=== PATIENT | male | born 1945 | race Caucasian/White ===

== ENCOUNTER 2021-08-19 17:09 | Inpatient (IN) | payer MEDICARE, BC, SELFPAY ==
[2021-08-19] VITALS (8 sets, daily range): BP systolic 118–143; BP diastolic 53–62; PULSE 57–77; RESP 16–18; TEMP 36.7–37.1; O2SAT 96–100; BMI 23.7
--- NOTE | ~2021-08-19 | XR_ITS ---
EXAMINATION: XR CHEST CLINICAL INFORMATION: Near syncope COMPARISON: Chest x-ray on 11/21/2009 TECHNIQUE: Frontal view of the chest was obtained. FINDINGS: No significant abnormality is noted involving the heart, lungs, mediastinum, bony thorax or soft tissues. XR/XR chest 1V IMPRESSION: Unremarkable examination.
--- NOTE | ~2021-08-19 | XR_ITS ---
EXAMINATION: XR HAND, RIGHT CLINICAL INFORMATION: Fall, right hand injury COMPARISON: None TECHNIQUE: PA, lateral, and oblique views of the right hand. FINDINGS: The bones and soft tissues are normal. No fracture. Alignment is anatomic. Loss of joint space with subchondral sclerosis and subluxation at the fifth DIP joint. No erosions or soft tissue calcifications. XR/XR hand RT 2V IMPRESSION: Fifth DIP joint osteoarthritis.
--- NOTE | ~2021-08-19 | MR_ITS ---
EXAMINATION: MRI BRAIN WITHOUT CONTRAST CLINICAL INFORMATION: Question lacunar infarct seen on CT. Patient with fall. COMPARISON: CT scan of the head 08/19/2021. TECHNIQUE: Multiplanar MR imaging of the brain was performed without contrast. FINDINGS: There are scattered nonspecific foci of T2 FLAIR signal hyperintensity within the periventricular white matter. There is a well marginated perivascular space at the inferior margin of the left putamen that coincides with the findings demonstrated on recent CT imaging. No evidence of acute territorial infarct. No pathological magnetic susceptibility artifact. Intracranial vascular flow voids are maintained. There is no mastoid or middle ear effusion. No active paranasal sinus disease. MR/MR head/brain wo con IMPRESSION: There are scattered chronic small vessel ischemic changes within the periventricular white matter. No evidence of acute territorial infarct or hemorrhage. There is a benign perivascular space along the inferior aspect the left putamen that coincides with the findings demonstrated on recent CT imaging.
--- NOTE | ~2021-08-19 | CT_ITS ---
EXAMINATION: CT HEAD WITHOUT CONTRAST CT CERVICAL SPINE WITHOUT CONTRAST CLINICAL INFORMATION: Near syncope. Fall. Neck pain. COMPARISON: None. TECHNIQUE: Imaging was performed from the skull base to vertex without intravenous administration of contrast. In addition, helical noncontrast CT imaging was acquired through the cervical spine and source images were reviewed along with axial reconstructions and sagittal and coronal MPRs. [This CT examination was performed using dose optimization techniques as appropriate, variously including the following: *Automated exposure control *Adjustment of mA and/or kV according to patient size (this includes techniques or standardized protocols for targeted exams where dose is matched to indication/reason for exam; i.e. extremities or head) *Use of iterative reconstruction technique] DLP: 1173 mGy-cm FINDINGS: HEAD: No intracranial mass, hemorrhage, or midline shift is visualized. There is generalized global volume loss. There is moderate prominence of the ventricles and the sulci . There is mild hypodensity of the periventricular white matter due to chronic small vessel ischemic disease. There are vascular calcifications of the internal carotid arteries bilaterally. Lacunar infarct versus prominent perivascular space in the left basal ganglia.. No extra-axial collections are identified. The paranasal sinuses and mastoid air cells are well aerated. CERVICAL SPINE: There is no evidence of acute cervical spine fracture. Vertebral bodies remain normal in height. Cervical vertebrae have normal alignment. There is multilevel degenerative spondylosis of the cervical spine with disc height narrowing and endplate spurs and facet joint arthrosis No pre- or paravertebral soft tissue abnormality is identified. Limited assessment of the lung apices is unremarkable. CT/CT cervical spine wo con IMPRESSION: 1. No acute intracranial pathology. 2. No CT evidence of acute cervical spine fracture or traumatic subluxation
--- NOTE | 2021-08-19 17:56 | ECG_ITS ---
Test Reason : FALL Blood Pressure : / mmHG Vent. Rate : 059 BPM Atrial Rate : 059 BPM P-R Int : 184 ms QRS Dur : 084 ms QT Int : 448 ms P-R-T Axes : 000 174 151 degrees QTc Int : 443 ms Suspect limb lead reversal, interpretation assumes no reversal Sinus bradycardia Inferior infarct (cited on or before 09-NOV-2007) cannot exclude anterior infarct Abnormal ECG When compared with ECG of 09-NOV-2007 15:22, QRS axis Shifted right Referred By: Bayron Rosales Electronically Signed By:RADHA SAM
--- NOTE | 2021-08-19 17:59 | ED_ITS ---
HPI - Fall General Chief Complaint: Fall Stated Complaint: dizzy/fall Time Seen by Provider: 08/19/21 17:55 Source: patient and EMS Mode of arrival: EMS Limitations: no limitations History of Present Illness HPI Narrative: 76-year-old male came in for evaluation after fall. Patient was going upstairs when he felt dizzy and lightheadedness, as a result patient fell backward about 14 steps of stairs hitting his head and neck and right hand, patient declined Loc before or after the fall, no chest pain, difficulty breathing, no reported weakness or numbness. Patient complains of occipital pain and neck pain, Also right little finger small laceration and bleeding from it. Patient is not on blood thinner. Related Data Home Medications Medication Instructions Recorded Confirmed amlodipine 10 mg tablet 1 tab PO DAILY 08/19/21 08/19/21 bupropion HCl 150 mg 24 hr tablet, 1 tab PO BEDTIME 08/19/21 08/19/21 extended release carvedilol 3.125 mg tablet 1 tab PO BID 08/19/21 08/19/21 fluoxetine 40 mg capsule 1 cap PO BEDTIME 08/19/21 08/19/21 hydrochlorothiazide 25 mg tablet 1 tab PO DAILY 08/19/21 08/19/21 Allergies Allergy/AdvReac Type Severity Reaction Status Date / Time No Known Allergies Allergy Verified 08/19/21 17:55 Review of Systems Review of Systems: All other systems are reviewed and are negative Constitutional: Reports as per HPI and Reports no additional constitutional complaints Eyes: Reports as per HPI and Reports no additional eye complaints Reports system reviewed and no additional complaints, except as documented Cardiovascular: Reports as per HPI and Reports no additional cardiovascular complaints Respiratory: Reports as per HPI and Reports no additional respiratory complaints Gastrointestinal: Reports as per HPI and Reports no additional gastrointestinal complaints Genitourinary: Reports no additional female genitourinary complaints Musculoskeletal: Reports no additional musculoskeletal complaints Skin/Breast: Reports system reviewed and no additional complaints, except as docu Psychiatric: Reports no additional psychiatric complaints Endocrine: Reports no additional endocrine complaints Hematologic/Lymphatic: Reports no additional hematologic/lymphatic complaints Allergic/Immunologic: Reports no additional allergic/immunologic complaints Reports system reviewed and no additional complaints, except as documented and Reports Abnormal speech present [facility] Social History Social History Patient Tobacco Use Status: Never used Tobacco Use of substances other than those prescribed or required for medical reasons: No Advance Directives: No Advance Directives Information Provided: Yes Physical Exam Vital Signs: Vital Signs: Last Vital Signs Temp 98.1 F 08/19/21 18:50 Pulse 59 08/19/21 18:50 Resp 16 08/19/21 18:50 BP 134/58 L 08/19/21 18:50 Pulse Ox 100 08/19/21 18:50 BMI result Body Mass Index 23.7 vital signs have been reviewed as appeared to be correct. Blood pressure normal. Heart rate normal. Respiration rate normal. Temperature normal. Oxygen saturation normal. Appearance: Alert. Oriented X3. No acute distress. GCS 15 Head: Normal external exam. Normocephalic. Atraumatic. No Pepper signs noted. No raccoon eyes noted Eyes: PERRLA. EOMI. Conjunctiva and sclera normal. Eyelids normal. ENT: TM's Normal. Pharynx normal. Uvula midline. Moist mucous membranes. No trismus noted. No drooling noted. No muffled voice noted. Neck: Normal inspection. Neck supple. FROM. No adenopathy. Thyroid Normal. No meningeal signs. No neck mass noted. CVS: Normal heart rate and rhythm. Heart sound normal. No murmurs noted. Pulses normal throughout. Respiratory: No respiratory distress. Painless inspiration. Breath sounds normal. No wheezes/rales/rhonchi noted. Chest nontender. No accessory muscle usage noted or decreased air movement noted. Abdomen: Soft and nontender. Bowel sounds normal in all 4 quadrants. No distention noted. No organomegaly noted. No visible injury noted. Back: No CVA tenderness. Full range of motion noted. Skin: Skin warm and dry. Normal skin color. Normal skin turgor. No rashes/lesions/lacerations noted. Extremities: No lower extremity edema. Extremities exhibit normal range of motion. Extremities nontender. Neuro: Oriented X 3. GCS 15 Cranial nerve exam: II-XII are grossly intact No motor deficit. No sensory deficit. Reflexes normal. Course Course Course Narrative: assessment and plan. 76-year-old fell after having lightheadedness, patient landed on the head and neck and fell about 14 steps stairs, no full LOC but near-syncope that caused the fall. Neuro exam intact/GCS is 15 / head CT is unremarkable. Given patient's age and the mechanism of fall after feeling lightheadedness cassie the patient to be admitted for further workup. MDM - Fall Medical Records Attestation: I reviewed the patient's medical records. Lab Data Attestation: I reviewed the patient's lab results. Result diagrams: 08/19/21 18:32 08/19/21 18:32 Labs: Lab Results 08/19/21 08/19/21 08/19/21 Range/Units 18:32 18:32 18:32 WBC 12.2 H (4.8-10.8) X10*3/uL RBC 3.67 L (4.60-5.80) X10*6/uL Hgb 12.1 L (14.0-18.0) g/dl Hct 35.9 L (42.0-52.0) % MCV 97.8 (80.0-98.0) fL MCH 33.0 (27.0-33.0) pg MCHC 33.7 (31.0-36.0) g/dl RDW 12.8 (11.0-16.0) % Plt Count 264 (160-400) X10*3/uL MPV 9.4 (9.4-12.4) fL Immature Gran % (Auto) 1.1 H (0.0-0.4) % Neut % (Auto) 76.1 H (45-73) % Lymph % (Auto) 10.8 L (20-40) % [place] % (Auto) 9.1 (2-11) % Eos % (Auto) 2.6 (0-4) % Baso % (Auto) 0.3 (0-2) % Lymph # (Auto) 1.3 (1.2-4.9) X10*3/uL [place] # (Auto) 1.1 (0.1-1.2) X10*3/uL Eos # (Auto) 0.3 (0.0-0.4) X10*3/uL Baso # (Auto) 0.0 (0.0-0.2) X10*3/uL Abs Immat Gran (auto) 0.13 H (0.00-0.03) X10*3/uL Absolute Neuts (auto) 9.3 H (2.0-8.3) x10*3/uL Absolute Nucleated RBC 0.000 (0.0-0.012) X10*3/uL Nucleated RBC % (auto) 0.0 (0.0-0.2) /100WBC Sodium 139 (135-145) mmol/L Potassium 4.0 (3.3-5.1) mmol/L Chloride 103 (96-108) mmol/L Carbon Dioxide 23 (22-29) mmol/L Anion Gap 17 (12-20) BUN 19 H (9-16) mg/dL Creatinine 1.16 (0.5-1.4) mg/dL Estim Creat Clear Calc 59.5 Estimated GFR > 60 Random Glucose 88 (60-115) mg/dL Calcium 9.3 (8.4-10.2) mg/dL Total Bilirubin 0.3 (0.0-1.0) mg/dL Direct Bilirubin < 0.2 (0.0-0.5) mg/dL AST 32 (5-37) U/L ALT 20 (0-40) U/L Alkaline Phosphatase 53 (39-117) U/L Troponin I High Sens < 3.5 (<3.5-35.0) ng/L B-Natriuretic Peptide (<100) pg/mL Total Protein 7.2 (6.5-8.0) g/dL Albumin 3.6 (3.5-5.0) g/dL Lipase 53 (8-78) U/L Urine Color Urine Appearance Urine pH (5.0-8.0) Ur Specific [place] (1.005-1.025) Urine Protein (NEG-TRACE) MG/DL Urine Glucose (UA) (NEG) MG/DL Urine Ketones (NEG) MG/DL Urine Blood (NEG) Urine Nitrite (NEG) Ur Leukocyte Esterase (NEG) COVID-19 (OJSETTE) (Negative) COVID-19 Clin Com 08/19/21 08/19/21 08/19/21 Range/Units 18:32 18:32 19:31 WBC (4.8-10.8) X10*3/uL RBC (4.60-5.80) X10*6/uL Hgb (14.0-18.0) g/dl Hct (42.0-52.0) % MCV (80.0-98.0) fL MCH (27.0-33.0) pg MCHC (31.0-36.0) g/dl RDW (11.0-16.0) % Plt Count (160-400) X10*3/uL MPV (9.4-12.4) fL Immature Gran % (Auto) (0.0-0.4) % Neut % (Auto) (45-73) % Lymph % (Auto) (20-40) % [place] % (Auto) (2-11) % Eos % (Auto) (0-4) % Baso % (Auto) (0-2) % Lymph # (Auto) (1.2-4.9) X10*3/uL [place] # (Auto) (0.1-1.2) X10*3/uL Eos # (Auto) (0.0-0.4) X10*3/uL Baso # (Auto) (0.0-0.2) X10*3/uL Abs Immat Gran (auto) (0.00-0.03) X10*3/uL Absolute Neuts (auto) (2.0-8.3) x10*3/uL Absolute Nucleated RBC (0.0-0.012) X10*3/uL Nucleated RBC % (auto) (0.0-0.2) /100WBC Sodium (135-145) mmol/L Potassium (3.3-5.1) mmol/L Chloride (96-108) mmol/L Carbon Dioxide (22-29) mmol/L Anion Gap (12-20) BUN (9-16) mg/dL Creatinine (0.5-1.4) mg/dL Estim Creat Clear Calc Estimated GFR Random Glucose (60-115) mg/dL Calcium (8.4-10.2) mg/dL Total Bilirubin (0.0-1.0) mg/dL Direct Bilirubin (0.0-0.5) mg/dL AST (5-37) U/L ALT (0-40) U/L Alkaline Phosphatase (39-117) U/L Troponin I High Sens (<3.5-35.0) ng/L B-Natriuretic Peptide 49 (<100) pg/mL Total Protein (6.5-8.0) g/dL Albumin (3.5-5.0) g/dL Lipase (8-78) U/L Urine Color YELLOW Urine Appearance CLEAR Urine pH 6.0 (5.0-8.0) Ur Specific [place] 1.020 (1.005-1.025) Urine Protein NEG (NEG-TRACE) MG/DL Urine Glucose (UA) NEG (NEG) MG/DL Urine Ketones NEG (NEG) MG/DL Urine Blood NEG (NEG) Urine Nitrite NEG (NEG) Ur Leukocyte Esterase NEG (NEG) COVID-19 (JOSETTE) Negative (Negative) COVID-19 Clin Com See Note Imaging Data Chest x-ray: Attestation: I personally reviewed and interpreted this imaging study as follows: Radiologist's impression: unremarkable examination right hand x-ray: Attestation: I personally reviewed and interpreted this imaging study as follows: Radiologist's impression: Fifth DIP joint osteoarthritis. cervical spine CT: Radiologist's impression: no CT evidence of acute cervical spine fracture or traumatic subluxation. CT scan - head: Radiologist's impression: No acute intracranial pathology. ECG Data Attestation: I personally reviewed and interpreted this ECG as follows: Interpretation: Sinus bradycardia at 59 beats per minutes, normal axis deviation, normal intervals, no ST-T changes. Discharge Plan Discharge Clinical Impression: Near syncope, Closed head injury Patient Disposition: Admitted As Inpatient
[2021-08-19 18:40] LABS: MANUAL DIFF FLAG NO
[2021-08-19 18:41] LABS: Basophils Percent Auto 0.3 % (0-2); Eosinophils Absolute Auto 0.3 X10*3/uL (0.0-0.4); Eosinophils Percent Auto 2.6 % (0-4); Hematocrit 35.9 % (42.0-52.0); Hemoglobin 12.1 g/dl (14.0-18.0); Imm Gran Abs Auto 0.13 X10*3/uL (0.00-0.03); Imm Gran Pct Auto 1.1 % (0.0-0.4); Lymphocytes Absolute Auto 1.3 X10*3/uL (1.2-4.9); Lymphocytes Percent Auto 10.8 % (20-40); Mean Corpuscular HGB Conc 33.7 g/dl (31.0-36.0); Mean Corpuscular Volume 97.8 fL (80.0-98.0); Mean Platelet Volume 9.4 fL (9.4-12.4); Monocytes Absolute Auto 1.1 X10*3/uL (0.1-1.2); Monocytes Percent Auto 9.1 % (2-11); Neutrophils Absolute Auto 9.3 x10*3/uL (2.0-8.3); Neutrophils Percent Auto 76.1 % (45-73); Platelet Count 264 X10*3/uL (160-400); Red Blood Count 3.67 X10*6/uL (4.60-5.80); Red Cell Distribution Width 12.8 % (11.0-16.0); White Blood Count 12.2 X10*3/uL (4.8-10.8)
[2021-08-19 18:57] LABS: COVID-19 Test Negative (Negative)
[2021-08-19 18:59] LABS: Alanine Aminotransferase 20 U/L (0-40); Albumin Level 3.6 g/dL (3.5-5.0); Alkaline Phosphatase 53 U/L (39-117); Anion Gap 17 (12-20); Aspartate Amino Transferase 32 U/L (5-37); Bilirubin Direct < 0.2 mg/dL (0.0-0.5); Bilirubin Total 0.3 mg/dL (0.0-1.0); Blood Urea Nitrogen 19 mg/dL (9-16); Calcium 9.3 mg/dL (8.4-10.2); Carbon Dioxide 23 mmol/L (22-29); Chloride 103 mmol/L (96-108); Creatinine Clr Calc Pharmacy 59.5; Estimated Glomerular Filt Rate > 60; Glucose Random 88 mg/dL (60-115); Lipase 53 U/L (8-78); Sodium 139 mmol/L (135-145); Total Protein 7.2 g/dL (6.5-8.0)
[2021-08-19 19:02] LABS: B Type Natriuretic Peptide 49 pg/mL (<100); Troponin-I High Sensitivity < 3.5 ng/L (<3.5-35.0)
[2021-08-19 19:42] LABS: Appearance Urine CLEAR; Color Urine YELLOW; Glucose Urine UA NEG (NEG); Leukocyte Esterase Urine NEG (NEG); Nitrite Urine NEG (NEG); Urine Blood NEG (NEG); Urine Ketones NEG (NEG); Urine Protein NEG (NEG-TRACE)
--- NOTE | 2021-08-19 20:55 | P.HPHOSP_ITS ---
History of Present Illness Date of Service: 08/19/21 Chief Complaint: fall this is a 76-year-old male with past medical history of Crohn's disease as well as hypertension and depression presents to the hospital with a fall. Patient reports that he was climbing the stairs missed his side rail and fell over 10 st eps down. He is currently feeling very sore but has no significant pain. Patient denies any loss of consciousness, denies feeling any prodromal symptoms including no palpitations, no chest pain, no lightheadedness, no change in vision, No shortness of breath. he reports that he just lost his balance and fell and when he fell down he did not lose any consciousness. Upon further questioning his at bedside mentions that for the past few months patient has been having lucid episodes where he suddenly becomes altered lasting about 20 minutes. He reports that he would be talking normally and then all the sudden he would start babbling making no sense trying to talk but no comprehensible word with come out. he has not seek any medical attention for this and patient himself does not remember these episodes. His reports that these have been occurring on and off for the past few months. patient denies any numbness tingling or weakness in his arms legs and no facial droop or change in speech. On arrival to the ED patient hemodynamically stable with no significant abnormal vitals labs reviewed showed WBC count of 12.2, hemoglobin of 12.1, labs otherwise unremarkable, UA negative, chest x-ray unremarkable, and x-ray negative, cervical spine CT negative, head CT showed no acute intracranial pathology but in the details it does mention lacunar infarct versus prominent perivascular space in the left basal ganglia given his mentioned symptoms, fall, as well as CT finding of possible lacunar infarct, will admit patient for observation and order MRI Review of Systems Review of Systems: Yes all other systems are reviewed and are negative [facility] Medical History (Updated 08/20/21 @ 06:40 by Yani Pretty MD) Crohn's disease Depression Hypertension Family History (Updated 08/20/21 @ 06:39 by Yani Pretty MD) Father Heart disease Surgical History (Updated 08/20/21 @ 06:39 by Yani Pretty MD) No pertinent past surgical history Social History Patient Tobacco Use Status: Never used Tobacco Use of substances other than those prescribed or required for medical reasons: No Advance Directives: No Advance Directives Information Provided: Yes Meds Allergies Allergy/AdvReac Type Severity Reaction Status Date / Time No Known Allergies Allergy Verified 08/19/21 17:55 Active Medications: Current Medications Pharmacy Consult (Consult Rx Perform Med Rec) 1 each MISCELLANE ONCE PRN PRN Reason: Consult order Home Medications Medication Instructions Recorded Confirmed Last Taken Type amlodipine 10 mg tablet 1 tab PO DAILY 08/19/21 08/19/21 Unknown History bupropion HCl 150 mg 24 hr tablet, 1 tab PO BEDTIME 08/19/21 08/19/21 Unknown History extended release carvedilol 3.125 mg tablet 1 tab PO BID 08/19/21 08/19/21 Unknown History fluoxetine 40 mg capsule 1 cap PO BEDTIME 08/19/21 08/19/21 Unknown History hydrochlorothiazide 25 mg tablet 1 tab PO DAILY 08/19/21 08/19/21 Unknown Hist ory Physical Exam Vital Signs and Narrative: Vital Signs: Last Vital Signs Temp 98.1 F 08/19/21 18:50 Pulse 59 08/19/21 18:50 Resp 16 08/19/21 18:50 BP 134/58 L 08/19/21 18:50 Pulse Ox 100 08/19/21 18:50 BMI result Body Mass Index 23.7 Const: General: cooperative and no acute distress Orientation/consciousness: patient oriented x3 Eyes: General: appearance normal, both eyes and all related structures Resp: Effort & Inspection: normal respiratory effort Auscultation: clear to auscultation bilaterally Cardio: Rate: regular rate Rhythm: regular rhythm GI: Palpation (GI): Soft to palpation Auscultation: normal bowel sounds Skin: General skin exam: no rashes or lesions noted Neuro: Other: strength is 5/5 in all extremity, no neurological deficits noted General: patient oriented x3 Cognition (Neuro): normal cognition Extrem: General: Yes normal to inspection and Yes no pedal edema Results Labs CBC and Chem 7: 08/19/21 18:32 08/19/21 18:32 Labs: Laboratory Results - last 24 hr 08/19/21 08/19/21 08/19/21 18:32 18:32 18:32 MCV 97.8 MCH 33.0 MCHC 33.7 RDW 12.8 Plt Count 264 MPV 9.4 Immature Gran % (Auto) 1.1 H Neut % (Auto) 76.1 H Lymph % (Auto) 10.8 L [place] % (Auto) 9.1 Eos % (Auto) 2.6 Baso % (Auto) 0.3 Lymph # (Auto) 1.3 [place] # (Auto) 1.1 Eos # (Auto) 0.3 Baso # (Auto) 0.0 Abs Immat Gran (auto) 0.13 H Absolute Neuts (auto) 9.3 H Absolute Nucleated RBC 0.000 Nucleated RBC % (auto) 0.0 Anion Gap 17 Estim Creat Clear Calc 59.5 Estimated GFR > 60 Random Glucose 88 Calcium 9.3 Total Bilirubin 0.3 Direct Bilirubin < 0.2 AST 32 ALT 20 Alkaline Phosphatase 53 Troponin I High Sens < 3.5 B-Natriuretic Peptide Total Protein 7.2 Albumin 3.6 Lipase 53 Urine Color Urine Appearance Urine pH Ur Specific [place] Urine Protein Urine Glucose (UA) Urine Ketones Urine Blood Urine Nitrite Ur Leukocyte Esterase COVID-19 (JOSETTE) COVID-19 Clin Com 08/19/21 08/19/21 08/19/21 18:32 18:32 19:31 MCV MCH MCHC RDW Plt Count MPV Immature Gran % (Auto) Neut % (Auto) Lymph % (Auto) [place] % (Auto) Eos % (Auto) Baso % (Auto) Lymph # (Auto) [place] # (Auto) Eos # (Auto) Baso # (Auto) Abs Immat Gran (auto) Absolute Neuts (auto) Absolute Nucleated RBC Nucleated RBC % (auto) Anion Gap Estim Creat Clear Calc Estimated GFR Random Glucose Calcium Total Bilirubin Direct Bilirubin AST ALT Alkaline Phosphatase Troponin I High Sens B-Natriuretic Peptide 49 Total Protein Albumin Lipase Urine Color YELLOW Urine Appearance CLEAR Urine pH 6.0 Ur Specific [place] 1.020 Urine Protein NEG Urine Glucose (UA) NEG Urine Ketones NEG Urine Blood NEG Urine Nitrite NEG Ur Leukocyte Esterase NEG COVID-19 (JOSETTE) Negative COVID-19 Clin Com See Note Imaging Radiologist's Impressions: Impressions Chest X-Ray 08/19/21 18:15 IMPRESSION: Unremarkable examination. Hand X-Ray 08/19/21 18:15 IMPRESSION: Fifth DIP joint osteoarthritis. Cervical Spine CT 08/19/21 18:33 IMPRESSION: 1. No acute intracranial pathology. 2. No CT evidence of acute cervical spine fracture or traumatic subluxation Head CT 08/19/21 18:33 IMPRESSION: 1. No acute intracranial pathology. 2. No CT evidence of acute cervical spine fracture or traumatic subluxation Assessment and Plan (1) Abnormal head CT: Status: Acute (2) Fall: Status: Acute 76-year-old male with past medical history of hypertension presents to the hospital with fall episode found to have an abnormal CT finding # abnormal head CT concerning for possible stroke - CT head shows global volume loss moderate prominence of the ventricles and sulci, as well as lacunar infarct versus prominent perivascular space in the left basal ganglia - given his fall, concerning for possible ataxia secondary to lacunar infarct in the basal ganglia - will obtain MRI of the head and admit to telemetry for observation # fall - appears mechanical but can also be secondary to ataxia given his CT head findings - will consult PT for evaluation # hypertension - stable - continue amlodipine and carvedilol as well as hydrochlorothiazide # depression - continue fluoxetine and bupropion DVT prophylaxis: Lovenox Quality Stroke Does the patient have a stroke diagnosis?: No VTE Prior VTE?: No VTE Risk Level:: Medical - moderate - high VTE Device Contraindication: Treatment Not Indicated VTE Drug Contraindication: N/A - Med Ordered
[2021-08-20] VITALS (11 sets, daily range): BP systolic 124–169; BP diastolic 57–87; PULSE 59–85; RESP 14–20; TEMP 36.1–37.2; O2SAT 97–100; BMI 24.0
[2021-08-20] MEDS: 0.9 % Sodium Chloride Flush 3 ML SYRINGE IVFLUSH ×4 (02:03→20:37)
[2021-08-20] MEDS: carvediloL 3.125 MG TABLET PO ×3 (02:12→20:24)
[2021-08-20 06:36] LABS: MANUAL DIFF FLAG NO
[2021-08-20 06:58] LABS: Basophils Percent Auto 0.3 % (0-2); Eosinophils Percent Auto 0.3 % (0-4); Hematocrit 31.7 % (42.0-52.0); Hemoglobin 11.1 g/dl (14.0-18.0); Imm Gran Abs Auto 0.05 X10*3/uL (0.00-0.03); Imm Gran Pct Auto 0.4 % (0.0-0.4); Lymphocytes Percent Auto 8.3 % (20-40); Mean Corpuscular Hemoglobin 33.8 pg (27.0-33.0); Mean Corpuscular Volume 96.6 fL (80.0-98.0); Neutrophils Absolute Auto 9.3 x10*3/uL (2.0-8.3); Neutrophils Percent Auto 81.7 % (45-73); Platelet Count 198 X10*3/uL (160-400); Red Blood Count 3.28 X10*6/uL (4.60-5.80); White Blood Count 11.5 X10*3/uL (4.8-10.8)
[2021-08-20 06:59] LABS: Anion Gap 16 (12-20); Blood Urea Nitrogen 19 mg/dL (9-16); Calcium 8.9 mg/dL (8.4-10.2); Carbon Dioxide 26 mmol/L (22-29); Chloride 101 mmol/L (96-108); Creatinine Clr Calc Pharmacy 66.3; Estimated Glomerular Filt Rate > 60; Glucose Random 119 mg/dL (60-115); Potassium 4.6 mmol/L (3.3-5.1); Sodium 138 mmol/L (135-145)
--- NOTE | 2021-08-20 08:39 | MHC.CM.PN ---
CM met with Patient at bedside and addressed WOOTEN with him, providing him with the original and placing a copy on the chart. Patient lives in a house with his and had no services nor DME TREATER. Patient's goal is to return home and CM has initiated and will follow for dc planning.PCP is Dr. Dayron Paris.
--- NOTE | 2021-08-20 10:18 | MHC.CM.PN ---
Patient is listed as, self-pay. CM has made a referral to [facility].
[2021-08-20] MEDS: amLODIPine Besylate 10 MG TABLET PO (10:21)
[2021-08-20] MEDS: hydroCHLOROthiazide 25 MG TABLET PO (10:21)
[2021-08-20] MEDS: Aspirin Enteric Coated 81 MG TABLET.DR PO (10:21)
[2021-08-20] MEDS: Acetaminophen 325 MG TABLET 650 MG PO ×2 (10:21→20:34)
--- NOTE | 2021-08-20 11:13 | MHC.CM.PN ---
Per ROUNDS discussion, Patient is being changed from OBSERVATION to INPATIENT;CM addressed IMM with Patient and his at bedside and provided them with the original and a copy has been placed on the chart.
[2021-08-20 12:00] LABS: Cholesterol 207 mg/dL; HDL Cholesterol 77 mg/dL; LDL Cholesterol Calculated 113 mg/dl; Triglycerides 89 mg/dL
--- NOTE | 2021-08-20 14:47 | PM.NEUROCN ---
History of Present Illness Data of Consult Service Date: 08/20/21 Primary Care Provider: Dayron Paris MD HPI Reason for consult: Possible seizure disorder 76 years old man with underlying history of Crohn's disease was in usual state of health last night when he was climbing stairs without touching any banister and lost his balance and fell. He said that he remembered everything and there was logical explanation for his fall. But in the hospital he also reported that he previously was having few minutes of episodes when apparently he would not make any sense or babble. PMFSH Past Medical History Medical History (Updated 08/20/21 @ 06:40 by Yani Pretty MD) Crohn's disease Depression Hypertension Family History Family History (Updated 08/20/21 @ 06:39 by Yani Pretty MD) Father Heart disease Surgical History Surgical History (Updated 08/20/21 @ 06:39 by Yani Pretty MD) No pertinent past surgical history Social History Social History Patient Tobacco Use Status: Never used Tobacco Use of substances other than those prescribed or required for medical reasons: No Advance Directives: No Advance Directives Information Provided: Yes service: Yes Current occupational status: retired [employer] Allergies Allergy/AdvReac Type Severity Reaction Status Date / Time No Known Allergies Allergy Verified 08/19/21 17:55 Active Medications: Current Medications Acetaminophen (Acetaminophen 325 Mg Tablet) 650 mg PO Q6H PRN PRN Reason: Pain, Mild (Pain Scale 1-3) Last Admin: 08/20/21 10:21 Dose: 650 mg Documented by: Amlodipine Besylate (Amlodipine Besylate 10 Mg Tablet) 10 mg PO DAILY [facility]; Protocol Last Admin: 08/20/21 10:21 Dose: 10 mg Documented by: Aspirin (Aspirin Enteric Coated 81 Mg Tablet.Dr) 81 mg PO DAILY [facility] Last Admin: 08/20/21 10:21 Dose: 81 mg Documented by: Bupropion HCl (Bupropion Hcl Xl 150 Mg Tab.Er.24h) 150 mg PO BEDTIME CHAKA Last Admin: 08/20/21 02:13 Dose: Not Given Documented by: Carvedilol (Carvedilol 3.125 Mg Tablet) 3.125 mg PO BID [facility]; Protocol Last Admin: 08/20/21 10:22 Dose: 3.125 mg Documented by: Docusate Sodium (Docusate Sodium 100 Mg Capsule) 100 mg PO DAILY PRN PRN Reason: Constipation Fluoxetine HCl (Fluoxetine Hcl 20 Mg Capsule) 40 mg PO BEDTIME [facility] Last Admin: 08/20/21 02:13 Dose: Not Given Documented by: Hydrochlorothiazide (Hydrochlorothiazide 25 Mg Tablet) 25 mg PO DAILY [facility]; Protocol Last Admin: 08/20/21 10:21 Dose: 25 mg Documented by: Ondansetron HCl (Ondansetron Hcl 4 Mg/2 Ml Vial) 4 mg IVPUSH Q8H PRN PRN Reason: Nausea and Vomiting Pharmacy Consult (Consult Rx Perform Med Rec) 1 each MISCELLANE ONCE PRN PRN Reason: Consult order Sodium Chloride (0.9 % Sodium Chloride Flush 3 Ml Syringe) 3 ml IVFLUSH QSHIFT [facility] Last Admin: 08/20/21 10:26 Dose: 3 ml Documented by: Home Medications Medication Instructions Recorded Confirmed Last Taken Type amlodipine 10 mg tablet 1 tab PO DAILY 08/19/21 08/19/21 Unknown History bupropion HCl 150 mg 24 hr tablet, 1 tab PO BEDTIME 08/19/21 08/19/21 Unknown History extended release carvedilol 3.125 mg tablet 1 tab PO BID 08/19/21 08/19/21 Unknown History fluoxetine 40 mg capsule 1 cap PO BEDTIME 08/19/21 08/19/21 Unknown History hydrochlorothiazide 25 mg tablet 1 tab PO DAILY 08/19/21 08/19/21 Unknown History Physical Exam Vital Signs: Vital Signs: Last Vital Signs Temp 98.9 F 08/20/21 11:31 Pulse 65 08/20/21 11:31 Resp 18 08/20/21 11:31 BP 151/69 H 08/20/21 11:31 Pulse Ox 98 08/20/21 11:31 BMI result Body Mass Index 24.0 Neuro: Other: He was alert and awake with normal spontaneity of speech fluency comprehension and affect. Face was symmetrical. Pupils were equal and reactive to light. Extraocular muscles were intact. Visual dobbins are full. There was no pronator drift. Deep tendon reflexes were trace to absent with flat plantars. Results Labs CBC & Chem 7: 08/20/21 05:59 08/20/21 05:59 Labs: Short CBC 08/19/21 08/20/21 Range/Units 18:32 05:59 WBC 12.2 H 11.5 H (4.8-10.8) X10*3/uL Hgb 12.1 L 11.1 L (14.0-18.0) g/dl Hct 35.9 L 31.7 L (42.0-52.0) % Plt Count 264 198 (160-400) X10*3/uL BMP 08/19/21 08/20/21 18:32 05:59 Sodium 139 138 Potassium 4.0 4.6 Chloride 103 101 Carbon Dioxide 23 26 BUN 19 H 19 H Creatinine 1.16 1.04 Calcium 9.3 8.9 Liver Function 08/19/21 Range/Units 18:32 Total Bilirubin 0.3 (0.0-1.0) mg/dL Direct Bilirubin < 0.2 (0.0-0.5) mg/dL AST 32 (5-37) U/L ALT 20 (0-40) U/L Alkaline Phosphatase 53 (39-117) U/L Albumin 3.6 (3.5-5.0) g/dL Urine 08/19/21 Range/Units 19:31 Urine Color YELLOW Urine Appearance CLEAR Urine pH 6.0 (5.0-8.0) Ur Specific [place] 1.020 (1.005-1.025) Urine Protein NEG (NEG-TRACE) MG/DL Urine Glucose (UA) NEG (NEG) MG/DL His brain imaging with CT scan and MRI I am mostly revealed moderately severe microvascular chronic changes mild atrophy and a benign-looking left perisylvian cystic lesion probably perivascular. Assessment and Plan (1) Fall: Status: Acute 76 years old man who provided reasonable story that he lost balance and fell but then there was also concern about his previous episodes where he was having neurological symptoms suggestive of complex partial seizure disorder. I would recommend obtaining an EEG, if not inpatient maybe outpatient for further evaluation. He could see us in the office for further evaluation. Procedures Date of Service Date of Service: 08/20/21
--- NOTE | 2021-08-20 15:29 | HO.PM.IMPN ---
Subjective Subjective Date of Service: 08/20/21 Interval History: Admitted due to mechanical fall, offers no acute complaints of headache, lightheadedness, dizziness, informed that in last several months he has been noted to have episodes of spacing out and difficulty expressing himself lasting few minutes without any facial asymmetry or weakness of extremities, no shakiness or tremors noted. Review of Systems General no headache, no dizziness, no fever chills. CVS no chest pain, no palpitation. Respiratory no cough, no sob. Gastrointestinal no nausea, no vomiting, no abdominal pain no urgency frequency Review of Systems: Yes all other systems are reviewed and are negative Physical Exam Vital Signs: Vital Signs: Last Vital Signs Temp 97.1 F 08/20/21 15:14 Pulse 61 08/20/21 15:14 Resp 20 08/20/21 15:14 BP 135/64 08/20/21 15:14 Pulse Ox 99 08/20/21 15:14 BMI result Body Mass Index 24.0 General awake alert x3, no acute distress. Neck no JVD. CVS regular rate rhythm, Respiratory lungs clear to auscultation, no respiratory distress, no wheeze, no rhonchi. Gastrointestinal abdomen soft, nontender, bowel sounds audible, no no guarding , no rigidity. Extremities no edema. Neuro nonfocal , face symmetrical, bilateral upper and lower extremity tone and strength equal, speech clear. Psych appropriate affect Objective Data Active Medications Acetaminophen (Acetaminophen 325 Mg Tablet) 650 mg PO Q6H PRN PRN Reason: Pain, Mild (Pain Scale 1-3) Last Admin: 08/20/21 10:21 Dose: 650 mg Documented by: KAROL Amlodipine Besylate (Amlodipine Besylate 10 Mg Tablet) 10 mg PO DAILY [facility]; Protocol Last Admin: 08/20/21 10:21 Dose: 10 mg Documented by: KAROL Aspirin (Aspirin Enteric Coated 81 Mg Tablet.Dr) 81 mg PO DAILY [facility] Last Admin: 08/20/21 10: Dose: 81 mg Documented by: KAROL Bupropion HCl (Bupropion Hcl Xl 150 Mg Tab.Er.24h) 150 mg PO BEDTIME [facility] Last Admin: 08/20/21 02:13 Dose: Not Given Documented by: DUANE Non-Admin Reason: pt states took this am takes in morning Carvedilol (Carvedilol 3.125 Mg Tablet) 3.125 mg PO BID [facility]; Protocol Last Admin: 08/20/21 10:22 Dose: 3.125 mg Documented by: KAROL Docusate Sodium (Docusate Sodium 100 Mg Capsule) 100 mg PO DAILY PRN PRN Reason: Constipation Fluoxetine HCl (Fluoxetine Hcl 20 Mg Capsule) 40 mg PO BEDTIME [facility] Last Admin: 08/20/21 02:13 Dose: Not Given Documented by: DUANE Non-Admin Reason: pt states took this am takes in morning Hydrochlorothiazide (Hydrochlorothiazide 25 Mg Tablet) 25 mg PO DAILY [facility]; Protocol Last Admin: 08/20/21 10:21 Dose: 25 mg Documented by: KAROL Ondansetron HCl (Ondansetron Hcl 4 Mg/2 Ml Vial) 4 mg IVPUSH Q8H PRN PRN Reason: Nausea and Vomiting Pharmacy Consult (Consult Rx Perform Med Rec) 1 each MISCELLANE ONCE PRN PRN Reason: Consult order Sodium Chloride (0.9 % Sodium Chloride Flush 3 Ml Syringe) 3 ml IVFLUSH QSHIFT [facility] Last Admin: 08/20/21 10:26 Dose: 3 ml Documented by: KAROL Labs CBC & Chem 7: 08/20/21 05:59 08/20/21 05:59 Labs: Laboratory Results - last 24 hr 08/19/21 08/19/21 08/19/21 18:32 18:32 18:32 MCV 97.8 MCH 33.0 MCHC 33.7 RDW 12.8 Plt Count 264 MPV 9.4 Immature Gran % (Auto) 1.1 H Neut % (Auto) 76.1 H Lymph % (Auto) 10.8 L [place] % (Auto) 9.1 Eos % (Auto) 2.6 Baso % (Auto) 0.3 Lymph # (Auto) 1.3 [place] # (Auto) 1.1 Eos # (Auto) 0.3 Baso # (Auto) 0.0 Abs Immat Gran (auto) 0.13 H Absolute Neuts (auto) 9.3 H Absolute Nucleated RBC 0.000 Nucleated RBC % (auto) 0.0 Anion Gap 17 Estim Creat Clear Calc 59.5 Estimated GFR > 60 Random Glucose 88 Calcium 9.3 Total Bilirubin 0.3 Direct Bilirubin < 0.2 AST 32 ALT 20 Alkaline Phosphatase 53 Troponin I High Sens < 3.5 B-Natriuretic Peptide Total Protein 7.2 Albumin 3.6 Triglycerides Cholesterol LDL Cholesterol, Calc HDL Cholesterol Lipase 53 Urine Color Urine Appearance Urine pH Ur Specific [place] Urine Protein Urine Glucose (UA) Urine Ketones Urine Blood Urine Nitrite Ur Leukocyte Esterase COVID-19 ([facility]) COVID-19 Clin Com 08/19/21 08/19/21 08/19/21 18:32 18:32 19:31 MCV MCH MCHC RDW Plt Count MPV Immature Gran % (Auto) Neut % (Auto) Lymph % (Auto) [place] % (Auto) Eos % (Auto) Baso % (Auto) Lymph # (Auto) [place] # (Auto) Eos # (Auto) Baso # (Auto) Abs Immat Gran (auto) Absolute Neuts (auto) Absolute Nucleated RBC Nucleated RBC % (auto) Anion Gap Estim Creat Clear Calc Estimated GFR Random Glucose Calcium Total Bilirubin Direct Bilirubin AST ALT Alkaline Phosphatase Troponin I High Sens B-Natriuretic Peptide 49 Total Protein Albumin Triglycerides Cholesterol LDL Cholesterol, Calc HDL Cholesterol Lipase Urine Color YELLOW Urine Appearance CLEAR Urine pH 6.0 Ur Specific [place] 1.020 Urine Protein NEG Urine Glucose (UA) NEG Urine Ketones NEG Urine Blood NEG Urine Nitrite NEG Ur Leukocyte Esterase NEG COVID-19 ([facility]TE) Negative COVID-19 Clin Com See Note 08/20/21 08/20/21 05:59 05:59 MCV 96.6 MCH 33.8 H MCHC 35.0 RDW 13.0 Plt Count 198 MPV 10.0 Immature Gran % (Auto) 0.4 Neut % (Auto) 81.7 H Lymph % (Auto) 8.3 L [place] % (Auto) 9.0 Eos % (Auto) 0.3 Baso % (Auto) 0.3 Lymph # (Auto) 1.0 L [place] # (Auto) 1.0 Eos # (Auto) 0.0 Baso # (Auto) 0.0 Abs Immat Gran (auto) 0.05 H Absolute Neuts (auto) 9.3 H Absolute Nucleated RBC 0.000 Nucleated RBC % (auto) 0.0 Anion Gap 16 Estim Creat Clear Calc 66.3 Estimated GFR > 60 Random Glucose 119 H D Calcium 8.9 Total Bilirubin Direct Bilirubin AST ALT Alkaline Phosphatase Troponin I High Sens B-Natriuretic Peptide Total Protein Albumin Triglycerides 89 Cholesterol 207 LDL Cholesterol, Calc 113 HDL Cholesterol 77 Lipase Urine Color Urine Appearance Urine pH Ur Specific [place] Urine Protein Urine Glucose (UA) Urine Ketones Urine Blood Urine Nitrite Ur Leukocyte Esterase COVID-19 ([facility]ETTE) COVID-19 Clin Com Assessment and Plan (1) Fall: Status: Acute (2) Near syncope: Status: Acute (3) Closed head injury: Status: Acute Assessment and Plan: 76-year-old male with past medical history of hypertension presents to the hospital with fall episode found to have an abnormal CT finding #? Mechanical fall with abnormal head CT concerning for possible stroke No syncope, no head injury ? CT head shows global volume loss moderate prominence of the ventricles and sulci, as well as lacunar infarct versus prominent perivascular space in the left basal ganglia MRI brain showed scattered chronic small vessel ischemic changes within the periventricular white matter. No evidence of acute territorial infarct or hemorrhage noted Seen by physical therapy they recommend outpatient physical therapy for minor balance issues. # intermittent transient episode of neurological deficit As per at least twice a month noted to have episodes where he is unable to communicate, space out, no loss of consciousness, symptoms going on for last several months, therefore seen by Neurology and they recommend EEG due to concern for complex partial seizures, will order EEG. #? hypertension ? stable continue amlodipine, carvedilol and hydrochlorothiazide #? depression ? continue fluoxetine and bupropion, no acute decompensation ?DVT prophylaxis: Lovenox Quality Stroke Does the patient have a stroke diagnosis?: No VTE Prior VTE?: No VTE Risk Level:: Medical - moderate - high VTE Device Contraindication: Treatment Not Indicated VTE Drug Contraindication: N/A - Med Ordered
[2021-08-20] MEDS: buPROPion HCl XL 150 MG TAB.ER.24H PO (20:24)
[2021-08-20] MEDS: FLUoxetine HCl 20 MG CAPSULE 40 MG PO (20:25)
--- NOTE | 2021-08-21 | EEG_ITS ---
This is a 16-channel EEG with an EKG lead. The patient is reported awake during the tracing. Background EEG rhythm is about 8 hertz, 5 to 50 microvolt posteriorly, lower amplitude fast anteriorly. Photic stimulation does not produce any significant abnormality. Hyperventilation is not performed. No sharp wave spikes or paroxysmal tendency noted. IMPRESSION: Unremarkable EEG. MD LOPEZ Ingram/ELINOR / [id number]
[2021-08-21 03:58] VITALS: BP 120/56; PULSE 55; RESP 17; TEMP 37.1; O2SAT 99
[2021-08-21 07:37] VITALS: BP 151/67; PULSE 68; RESP 18; TEMP 36.5; O2SAT 98
[2021-08-21] MEDS: hydroCHLOROthiazide 25 MG TABLET PO (09:55)
[2021-08-21] MEDS: Acetaminophen 325 MG TABLET 650 MG PO (09:55)
[2021-08-21] MEDS: Aspirin Enteric Coated 81 MG TABLET.DR PO (09:55)
[2021-08-21] MEDS: amLODIPine Besylate 10 MG TABLET PO (09:55)
[2021-08-21] MEDS: carvediloL 3.125 MG TABLET PO (09:55)
[2021-08-21] MEDS: 0.9 % Sodium Chloride Flush 3 ML SYRINGE IVFLUSH (09:57)
[2021-08-21 11:21] VITALS: BP 150/66; PULSE 66; RESP 20; TEMP 36.9; O2SAT 98
--- NOTE | 2021-08-21 13:30 | MHC.CM.PN ---
per rounds pt having an eeg and neurology consult prior to dc maybe dcd today or tomorrow
--- NOTE | 2021-08-21 14:51 | P.DS_ITS ---
DS: Providers Provider Date of Service: 08/21/21 Date of admission: 08/19/21 20:54 Primary care physician: Dayron Paris MD Consults: 08/20/21 11:37 Consult to Neurology Routine Consulting Provider: [facility] Reason for consultation: periods of aphasia /space out Has provider been notified: No DS: Diagnosis Discharge Diagnosis (1) Fall: Status: Acute (2) Near syncope: Status: Acute (3) Transient alteration of awareness: Status: Acute DS: Summary Hospital Course Hospital Course: From the history and physical by the admitting hospitalist, Yani Pretty MD, 08/19/21: this is a 76-year-old male with past medical history of Crohn's disease as well as hypertension and depression presents to the hospital with a fall.? Patient reports that he was climbing the stairs missed his side rail and fell over 10 steps down.? He is currently feeling very sore but has no significant pain.? Patient denies any loss of consciousness, denies feeling any prodromal symptoms including no palpitations, no chest pain, no lightheadedness, no change in vision, ? No shortness of breath. he reports that he just lost his balance and fell and when he fell down he did not lose any consciousness.? Upon further questioning his at bedside mentions that for the past few months patient has been having lucid episodes where he suddenly becomes altered lasting about 20 minutes.? He reports that he would be talking normally and then all the sudden he would start babbling making no sense trying to talk but no comprehensible word with come out.? he has not seek any medical attention for this and patient himself does not remember these episodes.? His reports that these have been occurring on and off for the past few months. ?patient denies any numbness tingling or weakness in his arms legs and no facial droop or change in speech. ? On arrival to the ED patient hemodynamically stable with no significant abnormal vitals ?labs reviewed showed WBC count of 12.2, hemoglobin of 12.1, labs otherwise unremarkable,? UA negative, chest x-ray unremarkable, and x-ray negative, cervical spine CT negative, head CT? showed no acute intracranial pathology but in the details it does mention lacunar infarct versus prominent perivascular space in the left basal ganglia ?given his mentioned symptoms, fall, as well as CT finding of possible lacunar infarct, will admit patient for observation and order MRI This 76-year-old male with past medical history of hypertension presented to the hospital with fall episode. There was no syncope and no head injury. CT head showed global volume loss moderate prominence of the ventricles and sulci, as well as lacunar infarct versus prominent perivascular space in the left basal ganglia. MRI brain showed?scattered chronic small vessel ischemic changes within the periventricular white matter; there was o evidence of acute territorial infarct or hemorrhage. There was a benign perivascular space along the inferior aspect the left putamen that coincides with the findings demonstrated the CT. He was seen by PT and outpatient PT for minor balance issues was recommended. Neurology was consulted due to intermittent episodes [2x monthly] where he does not speak but has preserved consciousness. EEG was done and the result will be read by the neurologist next week; the patient should follow up with the neurologist next week. Time Spent with Patient Time attestation: Total time spent providing and/or coordinating discharge services: Discharge coordination time: Greater than 30 minutes Quality: Stroke Does the patient have a stroke diagnosis?: No Physical Exam Vital Signs: Vital Signs: Last Vital Signs Temp 98.4 F 08/21/21 11:21 Pulse 66 08/21/21 11:21 Resp 20 08/21/21 11:21 BP 150/66 H 08/21/21 11:21 Pulse Ox 98 08/21/21 11:21 BMI result Body Mass Index 24.0 Gen: in no acute distress HEENT: sclera anicteric, moist mucus membranes Neck: supple Lungs: clear to auscultation bilaterally Heart: regular rate and rhythm, no murmurs Abd: soft, non-tender, non-distended Ext: no edema Skin: warm/well-perfused Neuro: alert and oriented x3, no focal findings Psych: appropriate affect DS: Data Data Completed and Pending Completed studies during hospitalization [Text1]: Laboratory Results WBC 11.5 X10*3/uL (4.8-10.8) H 08/20/21 05:59 RBC 3.28 X10*6/uL (4.60-5.80) L 08/20/21 05:59 Hgb 11.1 g/dl (14.0-18.0) L 08/20/21 05:59 Hct 31.7 % (42.0-52.0) L 08/20/21 05:59 MCV 96.6 fL (80.0-98.0) 08/20/21 05:59 MCH 33.8 pg (27.0-33.0) H 08/20/21 05:59 MCHC 35.0 g/dl (31.0-36.0) 08/20/21 05:59 RDW 13.0 % (11.0-16.0) 08/20/21 05:59 Plt Count 198 X10*3/uL (160-400) 08/20/21 05:59 MPV 10.0 fL (9.4-12.4) 08/20/21 05:59 Immature Gran % (Auto) 0.4 % (0.0-0.4) 08/20/21 05:59 Neut % (Auto) 81.7 % (45-73) H 08/20/21 05:59 Lymph % (Auto) 8.3 % (20-40) L 08/20/21 05:59 [place] % (Auto) 9.0 % (2-11) 08/20/21 05:59 Eos % (Auto) 0.3 % (0-4) 08/20/21 05:59 Baso % (Auto) 0.3 % (0-2) 08/20/21 05:59 Lymph # (Auto) 1.0 X10*3/uL (1.2-4.9) L 08/20/21 05:59 [place] # (Auto) 1.0 X10*3/uL (0.1-1.2) 08/20/21 05:59 Eos # (Auto) 0.0 X10*3/uL (0.0-0.4) 08/20/21 05:59 Baso # (Auto) 0.0 X10*3/uL (0.0-0.2) 08/20/21 05:59 Abs Immat Gran (auto) 0.05 X10*3/uL (0.00-0.03) H 08/20/21 05:59 Absolute Neuts (auto) 9.3 x10*3/uL (2.0-8.3) H 08/20/21 05:59 Absolute Nucleated RBC 0.000 X10*3/uL (0.0-0.012) 08/20/21 05:59 Nucleated RBC % (auto) 0.0 /100WBC (0.0-0.2) 08/20/21 05:59 Sodium 138 mmol/L (135-145) 08/20/21 05:59 Potassium 4.6 mmol/L (3.3-5.1) 08/20/21 05:59 Chloride 101 mmol/L (96-108) 08/20/21 05:59 Carbon Dioxide 26 mmol/L (22-29) 08/20/21 05:59 Anion Gap 16 (12-20) 08/20/21 05:59 BUN 19 mg/dL (9-16) H 08/20/21 05:59 Creatinine 1.04 mg/dL (0.5-1.4) 08/20/21 05:59 Estim Creat Clear Calc 66.3 08/20/21 05:59 Estimated GFR > 60 08/20/21 05:59 Random Glucose 119 mg/dL (60-115) H D 08/20/21 05:59 Calcium 8.9 mg/dL (8.4-10.2) 08/20/21 05:59 Total Bilirubin 0.3 mg/dL (0.0-1.0) 08/19/21 18:32 Direct Bilirubin < 0.2 mg/dL (0.0-0.5) 08/19/21 18:32 AST 32 U/L (5-37) 08/19/21 18:32 ALT 20 U/L (0-40) 08/19/21 18:32 Alkaline Phosphatase 53 U/L (39-117) 08/19/21 18:32 Troponin I High Sens < 3.5 ng/L (<3.5-35.0) 08/19/21 18:32 B-Natriuretic Peptide 49 pg/mL (<100) 08/19/21 18:32 Total Protein 7.2 g/dL (6.5-8.0) 08/19/21 18:32 Albumin 3.6 g/dL (3.5-5.0) 08/19/21 18:32 Triglycerides 89 mg/dL 08/20/21 05:59 Cholesterol 207 mg/dL 08/20/21 05:59 LDL Cholesterol, Calc 113 mg/dl 08/20/21 05:59 HDL Cholesterol 77 mg/dL 08/20/21 05:59 Lipase 53 U/L (8-78) 08/19/21 18:32 Urine Color YELLOW 08/19/21 19:31 Urine Appearance CLEAR 08/19/21 19:31 Urine pH 6.0 (5.0-8.0) 08/19/21 19:31 Ur Specific [place] 1.020 (1.005-1.025) 08/19/21 19:31 Urine Protein NEG MG/DL (NEG-TRACE) 08/19/21 19:31 Urine Glucose (UA) NEG MG/DL (NEG) 08/19/21 19:31 Urine Ketones NEG MG/DL (NEG) 08/19/21 19:31 Urine Blood NEG (NEG) 08/19/21 19:31 Urine Nitrite NEG (NEG) 08/19/21 19:31 Ur Leukocyte Esterase NEG (NEG) 08/19/21 19:31 COVID-19 ([facility]) Negative (Negative) 08/19/21 18:32 COVID-19 Clin Com See Note 08/19/21 18:32 Impressions Chest X-Ray 08/19/21 18:15 IMPRESSION: Unremarkable examination. Hand X-Ray 08/19/21 18:15 IMPRESSION: Fifth DIP joint osteoarthritis. Cervical Spine CT 08/19/21 18:33 IMPRESSION: 1. No acute intracranial pathology. 2. No CT evidence of acute cervical spine fracture or traumatic subluxation Head CT 08/19/21 18:33 IMPRESSION: 1. No acute intracranial pathology. 2. No CT evidence of acute cervical spine fracture or traumatic subluxation Brain MRI 08/20/21 09:31 IMPRESSION: There are scattered chronic small vessel ischemic changes within the periventricular white matter. No evidence of acute territorial infarct or hemorrhage. There is a benign perivascular space along the inferior aspect the left putamen that coincides with the findings demonstrated on recent CT imaging. Pending studies at discharge: EEG done 08/21/21, pending read by neurologist Discharge Plan Discharge Patient Disposition: Home, Self-Care Discharge Diagnosis: fall, episodes of altered mental status concerning for partial seizure disorder Referrals: Dayron Paris MD [Primary Care Provider] - 1 Week Ana Valles MD [Physician] - 1 Week (EEG done 08/21/21, read pending ) [place] - [facility] [place] - 1 Week Discharge Medications: Continued fluoxetine 40 mg capsule 1 cap PO BEDTIME RF: 0 carvedilol 3.125 mg tablet 1 tab PO BID RF: 0 amlodipine 10 mg tablet 1 tab PO DAILY RF: 0 hydrochlorothiazide 25 mg tablet 1 tab PO DAILY RF: 0 bupropion HCl 150 mg tablet extended release 24 hr 1 tab PO BEDTIME RF: 0 Discharge Orders: Discharge Order (Routine); Ordered 08/21/21 Ordered By: Juan Alberto Martinez Diet: advance to usual diet Activity on Discharge: As tolerated Stand Alone Forms: Patient Portal Discharge page Care Plan Goals: fall prevention workup of possible seizure disorder Health Concerns: fall, episodes of altered mental status concerning for partial seizure disorder Plan of Treatment: follow up with Dr Valles from [facility] [place] Neurology in 1 week for EEG results and further testing if needed outpatient physical therapy for high-level balance training Assessment: see Discharge Summary
--- NOTE | 2021-08-21 15:13 | MHC.CM.PN ---
pt dcd home no skilled servceismordered by
== END 2021-08-21 15:32 | disposition home or self-care (01) | DRG 101 ==
LOC: HO.ED 18:21 → HO.IMC 08-20 07:20 → HO.EDOVER 08-20 08:28
PROVIDERS: Hospitalist; Admitting Provider Internal Medicine; Emergency Provider Emergency Medicine; PCP Internal Medicine; Visit Provider Family Medicine
DX: G40.909 Epilepsy, unspecified, not intractable, without status epilepticus (principal); K50.90 Crohn's disease, unspecified, without complications; I10 Essential (primary) hypertension; F32.A Depression, unspecified; Z20.822 Contact with and (suspected) exposure to COVID-19; Z79.899 Other long term (current) drug therapy
CPT/HCPCS: 36415; 70450; 70551; 71045; 72125; 73120; 80048; 80061; 80076; 81003; 83690; 83880; 84484; 85025; 87635; 93005; 95816; 97161; 99285

== ENCOUNTER 2025-06-13 08:50 | Outpatient (AMB) | payer MEDICARE, SELFPAY ==
--- NOTE | 2025-06-13 08:52 | MHC.OFFVIS ---
Intake Visit Reasons: 6M Allergies No Known Allergies Allergy (Verified 06/13/25 08:53) Medication List - Last Reconciled 06/13/25 by Betty Lobato CNP amlodipine 1 tab PO DAILY atorvastatin 10 mg PO DAILY bupropion HCl XL 1 tab PO BEDTIME carvedilol 1 tab PO BID fluoxetine 1 cap PO BEDTIME hydrochlorothiazide 1 tab PO DAILY lamotrigine 50 mg PO BID sildenafil 50 mg PO HPI Comments Details: 80-year-old RH man with symptoms suggestive of complex partial seizure disorder resulting in mementary babbling or confusion. His stated that he would be looking at her, staring in space and not able to speak. He would go to his room, would sleep and then would be fine. He was doing okay and had no compliants. He was taking lamotrigine twice a day. No medication side effects. No spells. Sleep was okay. [facility] Medical History (Updated 06/13/25 @ 08:55 by Betty Lobato CNP) Fall Depression Hypertension Crohn's disease Closed head injury Near syncope Surgical History (Updated 08/20/21 @ 06:39 by Yani Pretty MD) No pertinent past surgical history Family History (Updated 08/20/21 @ 06:39 by Yani Pretty MD) Father Heart disease Social History Patient Tobacco Use Status: Never used Tobacco service: Yes Current occupational status: retired Review of Systems Const Denies chills, Denies daytime sleepiness, Denies difficulty sleeping, Denies fatigue, Denies fever(s), Denies frequent falls, Denies headache(s), Denies increased appetite, Denies poor appetite, Denies snoring, Denies weakness, Denies weight gain and Denies weight loss Eyes Denies loss of vision ENT Denies vertigo, Denies dizziness and Denies headache(s) Card Denies chest pain at rest, Denies chest pain with activity, Denies syncope, Denies leg edema and Denies palpitations Resp Denies snoring GI Denies constipation, Denies heartburn, Denies diarrhea and Denies nausea Denies urinary frequency, Denies urinary incontinence and Denies urinary urgency Musc Denies abnormal gait, Denies numbness and Denies tingling Skin/Breast Denies dry skin and Denies rash Neuro Denies abnormal gait, Denies vertigo, Denies dizziness, Denies syncope, Denies frequent falls, Denies headache(s), Denies lack of coordination, Denies loss of vision, Denies memory loss, Denies numbness, Denies restless legs, Denies seizure-like activity, Denies tingling, Denies paresthesias, Denies tremor(s) and Denies weakness Psych Denies anxiety, Denies depression, Denies auditory hallucinations, Denies memory loss, Denies visual hallucinations and Denies suicidal ideation Endo Denies fatigue and Denies palpitations Physical Exam Const Other: General Appearance:? normal, in no acute distress. Skin:? no rashes, no significant birthmarks. Heart:? S1, S2 normal, no murmurs. Lungs:? clear anteriorly and posteriorly. Extremities:? no edema. Psych:? alert, oriented, cognitive function intact, cooperative with exam. Neuro Other: Mental Status:?Normal attention, orientation, memory and affect.? Cranial Nerves:?Pupils are equal, round and reactive to light. External occular muscles are intact. Visual dobbins are full. Face is symmetrical. Facial sensations are normal. Tongue is midline. Palate elevates symmetrically. Shoulder shrugging is normal. Hearing to bedside conversation is normal. Sensory Exam:?....? Coordination:?No ataxia,?no titubation.? Gait Exam: Within normal limits. Cerebellar Signs:?[id number] is okay. Extrapyramidal System:?No tremor, rigidity with normal facial expressions.? Pronator Drift:?Not present.? Involuntary Movements:?No tremors seen.? Speech:?Normal.? 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 (2) Cerebral microvascular disease: Code(s): I67.89 - Other cerebrovascular disease Category: Medical (3) Brain lesion: Code(s): G93.9 - Disorder of brain, unspecified Category: Medical Plan . 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
--- OUTSIDE RECORDS SUMMARY | 2025-06-13 09:27 | XMS_ITS | Patient Health Record ---
Author Organization [facility] Address [address] [place] [address] Care Team Providers Care Supervisor Dehydrogenation Name Role Phone Dayron Paris MD Primary Care Provider Ricky Suero Unavailable [phone] Allergies No Known Allergies Reason For Referral No Information Medications Medication SIG (Take, Route, Frequency, Duration) Notes Start Date End Date Status Multivitamins as directed Orally Active Folic Acid 1 MG 1 tablet Orally Once a day; Duration: 30 day(s) Active Night Splint AFO - L1930 as directed 09/29/2020 Active Physical Therapy . . . 2-3x/week; Duration: 3-4 weeks 09/29/2020 Active Diprolene AF 0.05 % as directed Externally Not-Taking Diclofenac Sodium 1 % APPLY TO AFFECTED AREA ON RIGHT HEEL TWICE DAILY DIRECTED; Duration: 30 Active Metaxalone 800 MG 1 tablet Orally Thre e times a day; Duration: 30 day(s) Active FLUoxetine HCl 40 MG 1 capsule Orally On ce a day; Duration: 30 day(s) Active amLODIPine Besylate 10 MG 1 tablet Orall y Once a day; Duration: 30 day(s) Active Lisinopril 20 MG 1 tablet Orally Once a day Active Social History Tobacco Use: Social History Observation Description Date Details (start date - stop date) Former Smoker NA - 09/19/1990 Tobacco Use/Smoking Question Answer Notes Are you a: former smoker When did you stop smoking? 09/19/1990 Additional Findings: Tobacco Non-User Current no n-smoker Alcohol Screen Question Answer Notes Did you have a drink contain ing alcohol in the past year? Yes How often did you have a dri nk containing alcohol in the past year? 2 to 4 times a month (2 points) How many drinks did you have on a typical day when you were drinking in the past year? 1 or 2 drinks (0 point) Points 2 Interpretation Negative Tobacco use other than smoking: Question Answer Notes Are you an other tobacco user? No Plan Of Treatment Pending Test Test Name Order Date X ray : Foot, left 2V 05/24/2012 X ray : Foot, right 3V 09/29/2020 Insurance Providers Payer Name Payer Address Payer Phone Subscriber Number Group Number Insured Name Patient Relationship to Insured Coverage Start Date Coverage End Date [employer] [address] [place] [address] [id number] Gus Tillman Self - patient is the insured [facility] [address] [place] [address] [id number] Gus Tillman Self - patient is the insured Medical (General) History Medical History History ICD Code osteopenia high blood pressure gastroesophageal reflux disease (GERD) vitamin D deficiency crohns disease atypical chest pain Cataracts Depression Hiatal hernia Mumps Chicken pox Measles Surgical History Surgery Date(Month/Year) hernia fistula repair
== END 2025-06-13 09:01 | disposition home or self-care (01) ==
LOC: HO.HSM 08:50
PROVIDERS: PCP Internal Medicine; Visit Provider Registered Nurse
DX: G40.209 Localization-related (focal) (partial) symptomatic epilepsy and epileptic syndromes with complex partial seizures, not intractable, without status epilepticus (principal); I67.89 Other cerebrovascular disease; G93.9 Disorder of brain, unspecified
CPT/HCPCS: 99213

== ENCOUNTER → 2025-06-13 08:50 | Outpatient (BNVA) | payer MEDICARE, SELFPAY | PROVIDERS: PCP Internal Medicine; Visit Provider Registered Nurse | DX: G40.209 Localization-related (focal) (partial) symptomatic epilepsy and epileptic syndromes with complex partial seizures, not intractable, without status epilepticus (principal); I67.89 Other cerebrovascular disease; G93.9 Disorder of brain, unspecified; I10 Essential (primary) hypertension | CPT/HCPCS: 99212 ==